=== PATIENT | male | born 1995 | race Caucasian/White ===

== ENCOUNTER 2019-08-04 06:53 | Emergency (ER) | payer OTHER ==
[~2019-08-04] VITALS: Ht 190.5 cm; Wt 92.1 kg
[2019-08-04] MEDS ORDERED: NALOXONE HCL 0.4 MG/ML AMPUL IV ONE (07:00)
[2019-08-04] MEDS ORDERED: IV NS 0.9% 1,000 ML BAG IV ONE (07:00)
[2019-08-04] MEDS ORDERED: NALOXONE PREFILLED SYRINGE 2 MG/2 ML SYRINGE ONE ×2 (07:00→07:05)
--- NOTE | 2019-08-04 07:00 | NUR ---
PT BIBRA FROM [facility]. FOUND UNRESPONSIVE W/ NOTED PIN POINT PUPIL GIVEN NARCAN 2MG NASALLY. PT LETHARGIC, ON NON REBREATHER 100%, IV LINE ESTABLISHED 18 G RAC, CONNECTED TO THE BURGLAR ALARM SUPERINTENDENT AND POX.
--- NOTE | 2019-08-04 07:00 | NUR ---
DR MICHEL AT BEDSIDE
--- NOTE | 2019-08-04 07:05 | NUR ---
URINE COLLECTED AND SENT TO LAB
--- NOTE | 2019-08-04 07:20 | NUR ---
ENDORSEMENT RECEIVED FROM JAMIE YODER FOR ROBBIN
[2019-08-04 07:27] LABS: BASOPHILS % (AUTO) 0.7 % (0.0-2.0); EOSINOPHILS % (AUTO) 3.9 % (0.0-6.0); HEMATOCRIT 46 % (39-51); HEMOGLOBIN 16.2 g/dL (13.5-17.5); LYMPHOCYTES # (AUTO) 1.6 /CMM (0.8-4.8); LYMPHOCYTES % (AUTO) 26.9 % (20.0-44.0); MEAN CORPUSCULAR HGB CONC 35 g/dl (31.0-36.0); MEAN CORPUSCULAR VOLUME 90 fL (80-96); MONOCYTES # (AUTO) 0.7 /CMM (0.1-1.30); MONOCYTES % (AUTO) 11.7 % (2.0-12.0); NEUTROPHILS # (AUTO) 3.4 /CMM (1.8-8.9); NEUTROPHILS % (AUTO) 56.8 % (43.0-81.0); PLATELET COUNT (AUTO) 193 /CMM (150-450); RED BLOOD CELL COUNT(AUTO) 5.07 MIL/uL (4.5-6.0); WHITE BLOOD COUNT (AUTO) 6.1 K/uL (4.3-11.0)
[2019-08-04 07:28] LABS: ALANINE AMINOTRANSFERASE 52 U/L (12-78); ALBUMIN 3.8 g/dL (3.4-5.0); ALCOHOL, BLOOD < 3 mg/dL (0-0); ALKALINE PHOSPHATASE 67 U/L (46-116); ASPARTATE AMINOTRANSFERASE 22 U/L (15-37); BILIRUBIN,DIRECT 0.1 mg/dL (0.0-0.2); BILIRUBIN,TOTAL 0.4 mg/dL (0.2-1.0); CALCIUM, SERUM 8.6 mg/dL (8.5-10.1); CARBON DIOXIDE 30 mmol/L (21-32); CHLORIDE 102 mmol/L (98-107); GLUCOSE 108 mg/dL (74-106); POTASSIUM 3.5 mmol/L (3.5-5.1); SODIUM SERUM 143 mmol/L (136-145); TOTAL PROTEIN, SERUM 6.9 g/dL (6.4-8.2); UREA NITROGEN, BLOOD 11 mg/dL (7-18)
--- NOTE | 2019-08-04 07:30 | NUR ---
BROUGHT PATIENT TO RAD DEPT FOR CT HEAD
--- NOTE | 2019-08-04 07:46 | NUR ---
RT AT BEDSIDE FOR ABG
[2019-08-04 07:52] LABS: ABG BASE EXCESS 3.1 mmol/L; ABG OXYGEN SATURATION 99.1 % (92.0-98.5); ABG PCO2 50.6 mmHg (35.0-45.0); ABG PH 7.382 (7.350-7.450); ABG PO2 385.1 mmHg (75.0-100.0); AaDO2 277.3 mmHg; COHb 2.6 % (0.5-1.5); MetHb 0.5 % (0.0-1.5); SITE, ABG Left Radial; VENT MODE, BG NRB
--- NOTE | 2019-08-04 10:41 | NUR ---
PATIENT AWAKE, AOX3, HOOKED TO MONITOR, VSS, BREATHING EVEN AND UNLABORED. WILL CONTINUE TO MONITOR ACCORDINGLY
--- NOTE | 2019-08-04 11:09 | NUR ---
IV removed. Catheter intact and site benign. Pressure and 4x4 applied to site. No bleeding noted. Patient discharged in custody of officer Skip [id number] in stable condition. Patient medically cleared to book. Written and verbal after care instructions given. Patient verbalizes understanding of instruction.
[2019-08-04 11:10] VITALS: BP 131/69
== END 2019-08-04 11:11 ==
LOC: EDBD 06:55 → ER 06:55
DX: F19.10 Other psychoactive substance abuse, uncomplicated (principal); G93.40 Encephalopathy, unspecified; R41.82 Altered mental status, unspecified; R00.1 Bradycardia, unspecified; F12.10 Cannabis abuse, uncomplicated; F14.10 Cocaine abuse, uncomplicated; F15.10 Other stimulant abuse, uncomplicated
CPT/HCPCS: 36415; 36600; 70450; 71045; 80048; 80076; 80305; 80307; 82962; 85025; 93005; 96361; 96374; 99284; J2310 ×2; J7030; G0480